=== PATIENT | male | born 1995 | race Caucasian/White ===

== ENCOUNTER 2023-02-25 17:50 | Emergency (ER) | payer OTHER ==
[~2023-02-25] VITALS: Ht 165.1 cm; Wt 72.6 kg
[2023-02-25 18:19] VITALS: BP 127/93
[2023-02-25 18:46] LABS: Source, Urine Clean Catch
[2023-02-25 18:56] LABS: Appearance, Urine Hazy (Clear); Bilirubin, Urine Neg (Neg); Blood, Urine Neg (Neg); Color, Urine Yellow (P-Yellow); Glucose Qualitative, Urine Neg (Neg); Ketones, Urine Neg (Neg); Leukocyte Esterase, Urine Neg (Neg); Nitrite, Urine Neg (Neg); Protein, Urine Neg (Neg); Urobilinogen, Urine NORM (Normal)
[2023-02-25 19:14] LABS: Amorphous Heavy (0-Heavy); Bacteria Few /hpf; Red Blood Cells, Urine 0-2 /hpf (0-2); Squamous Epithelial Cells Rare /hpf (Few); White Blood Cells, Urine 0-2 /hpf (0-5)
== END 2023-02-25 19:35 | disposition home or self-care (01) ==
LOC: ER 17:50
PROVIDERS: Student in an Organized Health Care Education/Training Program
DX: N50.812 Left testicular pain (principal); Z88.0 Allergy status to penicillin
CPT/HCPCS: 76870; 81001; 96372; 99284-25; J1885

== ENCOUNTER 2023-10-26 03:53 | Emergency (ER) | payer OTHER, BC ==
[~2023-10-26] VITALS: Ht 165.1 cm; Wt 72.6 kg
[2023-10-26 04:06] VITALS: BP 140/98
[2023-10-26] MEDS ORDERED: Ketorolac Tromethamine 30mg Vial IV ONE (05:00)
[2023-10-26] MEDS ORDERED: Ondansetron HCl 2 MG / ML 2ML Vial IV ONE (05:05)
[2023-10-26] MEDS ORDERED: Acetaminophen 325 MG TABLET PO ONE (05:05)
== END 2023-10-26 06:46 | disposition home or self-care (01) ==
LOC: ER 03:53
DX: R10.31 Right lower quadrant pain (principal); N50.811 Right testicular pain; Z88.0 Allergy status to penicillin
CPT/HCPCS: 76870; A9270; J1885; J2405

== ENCOUNTER 2024-04-14 00:28 | Emergency (ER) | payer BC ==
[~2024-04-14] VITALS: Ht 170.2 cm; Wt 72.6 kg
[2024-04-14] MEDS ORDERED: Dexamethasone Sod Phos 10 MG/ML 1ML VIAL IV ONE (04:45)
[2024-04-14] MEDS ORDERED: DiphenhydrAMINE HCl 50 MG/ML 1ML Vial IV ONE (04:45)
[2024-04-14] MEDS ORDERED: Prochlorperazine Edisylate 10 mg Vial IV ONE (04:45)
[2024-04-14 04:52] VITALS: BP 143/84
== END 2024-04-14 06:03 | disposition home or self-care (01) ==
LOC: ER 00:28
DX: G43.909 Migraine, unspecified, not intractable, without status migrainosus (principal); Z88.0 Allergy status to penicillin
CPT/HCPCS: 96374; 96375; 99283-25; J0780; J1100; J1200

== ENCOUNTER 2024-10-14 13:04 | Emergency (ER) | payer BC ==
[~2024-10-14] VITALS: Ht 165.1 cm; Wt 68.0 kg
[2024-10-14 14:47] VITALS: BP 148/87
[2024-10-14] MEDS ORDERED: Ketorolac Tromethamine 15mg Vial IV ONE (15:05)
[2024-10-14] MEDS ORDERED: DiphenhydrAMINE HCl 50 MG/ML 1ML Vial IV ONE (15:05)
[2024-10-14] MEDS ORDERED: NS 1,000 ML IV SCH (15:05)
[2024-10-14] MEDS ORDERED: Prochlorperazine Edisylate 10 mg Vial IV ONE (15:05)
[2024-10-14] MEDS ORDERED: Acetaminophen 500 MG Tab PO ONE (16:35)
[2024-10-14] MEDS ORDERED: Dexamethasone Sod Phos 10 MG/ML 1ML VIAL IV ONE (16:35)
== END 2024-10-14 17:15 | disposition home or self-care (01) ==
LOC: ER 13:04
DX: G43.909 Migraine, unspecified, not intractable, without status migrainosus (principal)
CPT/HCPCS: 96361; 96374; 96375; 99283-25; A9270; J0780; J1100; J1200; J1885; J7030

== ENCOUNTER 2025-01-13 11:53 | Emergency (ER) | payer BC ==
[~2025-01-13] VITALS: Ht 165.1 cm; Wt 70.3 kg
[2025-01-13] MEDS ORDERED: Ketorolac Tromethamine 30mg Vial IV ONE (12:35)
[2025-01-13] MEDS ORDERED: DiphenhydrAMINE HCl 50 MG/ML 1ML Vial IV ONE (12:35)
[2025-01-13] MEDS ORDERED: NS 1,000 ML IV SCH (12:35)
[2025-01-13] MEDS ORDERED: Metoclopramide HCl 5MG / ML 2ML Vial IV ONE (12:35)
[2025-01-13 13:30] VITALS: BP 129/70
[2025-01-13] MEDS ORDERED: METO10 PO (13:44)
== END 2025-01-13 13:44 | disposition home or self-care (01) ==
LOC: ER 11:53
DX: G43.109 Migraine with aura, not intractable, without status migrainosus (principal); Z88.0 Allergy status to penicillin
CPT/HCPCS: 96374; 96375; 99282-25; J1885; J2765; J7030

== ENCOUNTER 2025-03-14 11:15 | Emergency (ER) | payer BC ==
[~2025-03-14] VITALS: Ht 165.1 cm; Wt 67.0 kg
[~2025-03-14 11:15] MED LIST: METO10 PO
[2025-03-14] MEDS ORDERED: Metoclopramide HCl 5MG / ML 2ML Vial IV ONE (11:30)
[2025-03-14] MEDS ORDERED: DiphenhydrAMINE HCl 50 MG/ML 1ML Vial IV ONE (11:30)
[2025-03-14] MEDS ORDERED: Ketorolac Tromethamine 30mg Vial IV ONE (11:30)
[2025-03-14 13:30] VITALS: BP 145/82
== END 2025-03-14 13:34 | disposition home or self-care (01) ==
LOC: ER 11:15
DX: G43.109 Migraine with aura, not intractable, without status migrainosus (principal); Z88.0 Allergy status to penicillin
CPT/HCPCS: 96361; 96374; 96375; 99283-25; J1885; J2765; J7120